=== PATIENT | female | born 1990 | race American Indian/Alaskan Native ===

== ENCOUNTER 2017-09-13 11:31 | Emergency (ER) | payer SELFPAY ==
[2017-09-13 11:43] VITALS: BP 139/82
--- NOTE | 2017-09-13 12:14 | Emergency Department Report ---
ED Dysuria HPI - HPI Chief Complaint: Urogenital-Female Stated Complaint: VAGINAL ITCHING Time Seen by Provider: 09/13/17 11:58 Duration: 3 Days Severity: Mild Symptoms: Dysuria: Yes, Frequency: No, Suprapubic Pain: No, Flank Pain: No, Fever: No, Hematuria: No, Abdominal Pain: No, Previous UTI's: No Other History: vag dc odor. sex w new female. not known if she has s/s ED Review of Systems ROS: Stated complaint: VAGINAL ITCHING Other details as noted in HPI Comment: All other systems reviewed and negative Gastrointestinal: denies: abdominal pain Genitourinary: dysuria, discharge ED Past Medical Hx - Past Medical History Previous Medical History?: No - Surgical History Past Surgical History?: Yes Hx Cholecystectomy: Yes - Family History Family history: no significant - Social History Smoking Status: Never Smoker Substance Use Type: None - Medications Home Medications: Home Medications Medication Instructions Recorded Confirmed Last Taken Type metroNIDAZOLE [Flagyl] 500 mg PO Q12HR #20 tab 09/13/17 Unknown Rx Dysuria Exam - Exam General: Vital signs noted. No distress. Alert and acting appropriately. Exam: Yes Moist Mucous Membranes, No CVA Tenderness, No Abdominal Tenderness, No Rigidity or Guarding ED Course Vital Signs 09/13/17 11:41 Temperature 99.2 F Pulse Rate 74 Respiratory 16 Rate Blood Pressure 139/82 O2 Sat by Pulse 99 Oximetry - Reevaluation(s) Reevaluation #1: 09/13/17 14:12 to er w vag dc and irritation sex w 1 new woman 2 in last yr foul odor no abd pain some dysuria vss non toxic nonill appearing no fever no abd pain or tenderness ua noted preg neg pelvic- red inflammed, fishy discharge wet prep neg given s/s and exam will tx with flagyl dc home w ob follow up. ED Medical Decision Making - Medical Decision Making see note - Differential Diagnosis uti v std Critical care attestation.: If time is entered above; I have spent that time in minutes in the direct care of this critically ill patient, excluding procedure time. ED Disposition Clinical Impression: Vaginitis Qualifiers: Chronicity: acute Qualified Code(s): N76.0 - Acute vaginitis Disposition: TO HOME OR SELFCARE Is pt being admited?: No Does the pt Need Aspirin: No Condition: Stable Instructions: Bacterial Vaginosis (ED) Additional Instructions: non harsh soaps follow up obgyn Prescriptions: metroNIDAZOLE [Flagyl] 500 mg PO Q12HR #20 tab Referrals: PRIMARY CARE, [Primary Care Provider] - 3-5 Days NANCIE BERGER MD [Staff Physician] - 3-5 Days Time of Disposition: 13:41
[2017-09-13 12:47] LABS: Bilirubin,Urine NEG (Negative); Blood,Urine SM (Negative); Ketones,Urine NEG (Negative); Leukocyte Esterase,Urine NEG (Negative); Mucus,Urine 3+ /HPF; Nitrite,Urine NEG (Negative); Protein,Urine <15 mg/dL mg/dL (Negative); Urobilinogen,Urine < 2.0 mg/dL (<2.0)
== END 2017-09-13 14:10 | disposition home or self-care (01) ==
LOC: ED 11:31
DX: N76.0 Acute vaginitis (principal); Z90.49 Acquired absence of other specified parts of digestive tract
CPT/HCPCS: 99283

== ENCOUNTER 2018-10-27 00:53 | Emergency (ER) | payer SELFPAY | END 2018-10-27 03:50 | disposition left against medical advice (07) | LOC: ED 00:53 ==

== ENCOUNTER 2019-11-01 20:42 | Emergency (ER) | payer SELFPAY | END 2019-11-01 21:16 | disposition left against medical advice (07) | LOC: ED 20:42 | DX: M79.651 Pain in right thigh (principal); Z53.21 Procedure and treatment not carried out due to patient leaving prior to being seen by health care provider ==